=== PATIENT | female | born 2000 | race Caucasian/White ===

== ENCOUNTER 2024-04-21 11:05 | Emergency (ER) | payer BC, SELFPAY ==
[2024-04-21 11:07] VITALS: BP 124/81
--- NOTE | 2024-04-21 12:41 | ED.GENMED ---
History of Present Illness
General
Chief Complaint: Abdominal Pain
Source: patient and significant other
Exam Limitations: none
Time Seen by Provider: 04/21/24 11:22
History of Present Illness
History of Present Illness:
23-year-old female presents for evaluation of abdominal pain. The patient states her symptoms have essentially resolved. She developed pain this morning in her periumbilical area that radiate up towards her epigastric area and a little bit toward
her chest. She states she then presented to an urgent care and had labs and a chest x-ray performed. She also had an EKG performed. She was sent here for further evaluation. Patient now states her pain is gone and feels well. She does have a
history of hypercholesterolemia and was just a little worried about her heart. She denies constipation, diarrhea, melena, hematochezia, dysuria, hematuria, nausea, vomiting, fevers. She did have a big potato with butter last night.
Past History
Past History
ED Past Medical History: Hypercholesterolemia
Phy Exam
Physical Exam
Physical Exam:
CONSTITUTIONAL Patient alert and oriented to person, place and time. Well-appearing. Vital signs reviewed.
HEAD atraumatic, normocephalic.
EYES eyelids normal to inspection, Extraocular muscles intact, Conjunctiva normal, Sclera normal.
NECK normal range of motion, Trachea midline, no jugular venous distention.
RESPIRATORY CHEST No respiratory distress noted, Chest expansion equal, Bilateral breath sounds clear.
CARDIOVASCULAR regular rate and rhythm, Heart sounds normal.
ABDOMEN patient reports minimal right upper quadrant tenderness, Bowel sounds normal. No distention.
BACK normal inspection, no obvious deformities
UPPER EXTREMITY range of motion normal, Motor strength normal, no cyanosis, no edema.
LOWER EXTREMITY range of motion normal, Motor strength normal, no cyanosis, no edema.
NEURO Speech normal, No focal motor deficits, [place] coma scale 15, Memory normal, Cranial Nerves intact to screening exam.
SKIN skin warm, dry, and normal in color.
Course
Vital Signs
Initial and Last Documented VS:
Initial Vital Signs
Temp Pulse Resp BP Pulse Ox
98.9 F 88 16 124/81 99
04/21/24 11:07 04/21/24 11:07 04/21/24 11:07 04/21/24 11:07 04/21/24 11:07
Last Documented Vital Signs
Temp Pulse Resp BP Pulse Ox
98.9 F 88 16 124/81 99
04/21/24 11:07 04/21/24 11:07 04/21/24 11:07 04/21/24 11:07 04/21/24 11:07
MDM/Problems Addressed
MDM/Problems Addressed:
Abdominal pain�resolved
Chronic conditions affecting care: Other (Hypercholesterolemia)
*Radiology
Radiology exam reviewed: all reviewed NAD by ED Provider (Chest x-ray from urgent care uploaded to [employer] and reviewed, NAD)
*Pulse Oximetry
Patient hypoxic: no
*Critical Care Note
Total Time (30-74mins, 75-104mins- exclusive of procedures): Not Applicable
Data Reviewed
Review of Other/Old Records Reveals: Labs (Urgent care labs reviewed and white count and hemoglobin normal)
Source: patient
Further Testing Considered But Not Given:
Considered ultrasound versus CT but patient states symptoms have resolved
Patient Management
Escalation/DeEscalation of care consider admission/obs:
Symptoms have resolved. Patient would prefer to forego further imaging. I think this is reasonable. Counseled on reasons for return and she agrees. I did recommend an outpatient ultrasound of her gallbladder if she does have recurrent pain after
eating fatty meals. Patient agrees
ED Attending Note
-
Portions of this chart may have been created with voice recognition software.� Occasional wrong word or��sound alike� substitutions may have occurred due to the inherent limitations of voice recognition software.
Discharge Plan
Departure
Patient Disposition: Home (Routine Discharge)
Date of Disposition: 04/21/24
Time of Disposition: 12:41
Patient with high blood pressure during this ER visit?: No
Discharge Problem:
Abdominal pain
Instructions: Abdominal Pain
Referrals:
Jose Luis Royal DO [Family Provider] -
Activity Restrictions/Additional Instructions:
Return immediately for worsening pain, recurrent pain, vomiting, fevers or any other concerns. Please be sure to see your doctor next 2 weeks for follow-up and reevaluation. If your symptoms return, an ultrasound of your abdomen to rule out
gallstones may be appropriate.
Interventions
Interventions:
*Risk Screen - Suicide Last Done: 04/21/24 11:07
*Neglect/Abuse Screening Last Done: 04/21/24 11:07
*ED COVID-19 Vaccine History Last Done: 04/21/24 11:07
Discharge Date and Time
Print Language: [id number]
== END 2024-04-21 12:49 | disposition home or self-care (01) ==
LOC: EMR 11:05
PROVIDERS: EMERGENCY PHYSICIAN Emergency Medicine; FAMILY PHYSICIAN Family Medicine
DX: R10.9 Unspecified abdominal pain (principal); E78.00 Pure hypercholesterolemia, unspecified
CPT/HCPCS: 99282